=== PATIENT | male | born 1990 | race Caucasian/White ===

== ENCOUNTER 2022-08-16 17:18 | Emergency (ER) | payer OTHER ==
[~2022-08-16] VITALS: Ht 167.6 cm; Wt 81.6 kg
[2022-08-16 17:41] VITALS: BP 127/79
--- NOTE | 2022-08-16 17:59 | NUR ---
Patient discharged to home in stable condition. Written and verbal after care instructions given. Patient verbalizes understanding of instruction.
== END 2022-08-16 18:00 | disposition home or self-care (01) ==
LOC: ER 17:27
DX: F41.9 Anxiety disorder, unspecified (principal); Z76.0 Encounter for issue of repeat prescription